=== PATIENT | male | born 1975 | race African-American/Black ===

== ENCOUNTER 2024-07-15 02:34 | Emergency (ER) | payer OTHER, SELFPAY ==
[2024-07-15] VITALS (13 sets, daily range): BP systolic 141–150; BP diastolic 83–105; PULSE 71–90; RESP 12–30; TEMP 36.9; O2SAT 96–99
--- NOTE | ~2024-07-15 | CT_ITS ---
EXAMINATION: CTA chest PE protocol DATE: 07/15/2024 09:02 INDICATION: Chest pain. TECHNIQUE: Computed tomography angiography (CTA) of the chest was performed with 100 mL Omnipaque-350 intravenous contrast timed to evaluate the pulmonary arteries. Coronal maximum intensity projection 3D-reconstructions were created by the technologist. Automated exposure control and iterative reconst ruction technique were employed. The dose-length product was 351.54 mGy-cm. COMPARISON: None. FINDINGS: There is moderate emphysema. There is mild atelectasis in the right. There is a in the 11.3 x 11.8 cm mass involving the left lung upper lobe in the mediastinum. There is left hilar and medias tinal lymphadenopathy. There are airspace and groundglass opacities in left upper lobe adjacent to th e mass that may be pulmonary edema or pneumonia. There is marked elevation of left hemidiaphragm, lik rafael secondary to phrenic nerve involvement by the tumor. There is atelectasis in left lower lobe. A c alcified right lung nodule and calcified right hilar lymph nodes are consistent with old granulomatou s disease. No pleural effusion. There is left atrial enlargement of the heart. There is a small peric ardial effusion. There is no pulmonary embolus. There is a 2.3 cm mass in left adrenal gland. There i s a 14 mm cyst in left kidney. There is mild thoracic spondylosis. There is mild chronic anterior wed ging of T11-L1 vertebral bodies. There is a right internal jugular port with tip in right atrium. IMPRESSION: 1. 1.8 cm mass involving the left lung upper lobe in the mediastinum and left hilar and mediastinal l ymphadenopathy, consistent with primary bronchogenic carcinoma and nelda metastatic disease. 2. Airspace and groundglass opacities in left upper lobe adjacent to the mass, consistent with pulmon jenny edema versus pneumonia. 3. 2.3 cm mass in the left adrenal gland, which may be metastatic disease or an adenoma. 4. No pulmonary embolus. 5. Moderate emphysema. 6. Small pericardial effusion. Reviewed, dictated and finalized at location [facility] IMPRESSION: 1. 1.8 cm mass involving the left lung upper lobe in the mediastinum and left h ilar and mediastinal lymphadenopathy, consistent with primary bronchogenic carc inoma and nelda metastatic disease. 2. Airspace and groundglass opacities in left upper lobe adjacent to the mass, consistent with pulmonary edema versus pneumonia. 3. 2.3 cm mass in the left adrenal gland, which may be metastatic disease or an adenoma. 4. No pulmonary embolus. 5. Moderate emphysema. 6. Small pericardial effusion.
--- NOTE | 2024-07-15 02:47 | ECG_ITS ---
Test Date: 2024-07-15 02:47:19 Measurements Intervals [place] Rate: 72 P: 61 MN: 169 QRS: 35 QRSD: 90 T: 75 QT: 370 QTc: 406 Interpretive Statements SINUS RHYTHM VOLTAGE CRITERIA FOR LVH [MEETS CRITERIA IN ONE OF: R(aVL), S(V1), R(V5), R(V5/V6)+S(V1)] NONSPECIFIC T-WAVE ABNORMALITY No previous ECG available for comparison Electronically Signed On 07-15-2024 11:56:28 HAND MODEL by Daxa Bradshaw
[2024-07-15 06:18] LABS: Basophils Percent Auto 0.3 % (0.2-1.2); Eosinophils Absolute Auto 0.4 K/mm3 (0-0.3); Eosinophils Percent Auto 2.7 % (0-4.4); Hematocrit 32.8 % (42.0-52.0); Hemoglobin 10.4 g/dL (14.0-18.0); Immature Granulocyte Absolute 0.04 K/mm3 (0.00-0.031); Immature Granulocyte Percent A 0.3 % (0-0.5); Lymphocytes Absolute Auto 2.17 K/mm3 (0.9-3.2); Lymphocytes Percent Auto 15.7 % (18.3-44.2); Mean Corpuscular HGB Conc 31.7 g/dl (32-36); Mean Corpuscular Volume 88.2 fl (80-100); Mean Platelet Volume 9.2 fl (7.4-10.4); Monocytes Absolute Auto 1.3 K/mm3 (0.1-0.6); Monocytes Percent Auto 9.5 % (2.6-8.5); Neutrophils Absolute Auto 9.9 K/mm3 (1.3-6.7); Neutrophils Percent Auto 71.5 % (45.5-73.1); Platelet Count Result 530 k/mm3 (150-375); Red Blood Count 3.72 M/mm3 (4.6-6.20); Red Cell Distribution Width 13.6 % (11.5-14.5); White Blood Count 13.9 K/mm3 (4.5-10.0)
[2024-07-15 06:56] LABS: Influenza A QL RT-PCR Negative (Negative); Influenza B QL RT-PCR Negative (Negative); RSV RNA, RT-PCR Negative (Negative); SARS-CoV-2 RNA PCR Negative (Negative)
[2024-07-15 07:01] LABS: INR 1.1; Prothrombin Time 14.5 Seconds (11.1-14.7)
[2024-07-15 07:02] LABS: Partial Thromboplastin Time 31.8 Seconds (22.3-36.8)
[2024-07-15 07:07] LABS: D Dimer 1.73 ug/mL (<0.48)
[2024-07-15 08:00] LABS: Alanine Aminotransferase 17 U/L (6-50); Alkaline Phosphatase 83 U/L (38-126); Anion Gap 10 mmol/L (4-12); Aspartate Amino Transferase 24 U/L (17-59); Bilirubin,Total 0.5 mg/dL (0.2-1.3); Blood Urea Nitrogen 20 mg/dL (9-20); Calcium 9.7 mg/dL (8.4-10.2); Carbon Dioxide 26 mmol/L (22-30); Chloride 105 mmol/L (98-107); Estimated CRCL calculation 87 ml/min; Estimated Glomerular Filt Rate > 60; Glucose 111 mg/dL (65-110); Lipase 39 U/L (23-300); Magnesium 2.1 mg/dL (1.6-2.3); Sodium 141 mmol/L (137-145)
[2024-07-15 08:10] LABS: Troponin I < 0.012 ng/mL (0.000-0.034)
--- NOTE | 2024-07-15 08:27 | ECG_ITS ---
Test Date: 2024-07-15 08:39:22 Measurements Intervals [place] Rate: 81 P: 50 MA: 166 QRS: 34 QRSD: 88 T: 86 QT: 347 QTc: 403 Interpretive Statements SINUS RHYTHM LEFT VENTRICULAR HYPERTROPHY AND ST-T CHANGE [VOLTAGE CRITERIA PLUS ST/T ABNORMALITY] Compared to ECG 07/15/2024 02:47:19 ST (T wave) deviation now present T-wave abnormality no longer present Electronically Signed On 07-15-2024 11:57:40 [employer] by Daxa Bradshaw
[2024-07-15 09:14] LABS: Troponin I < 0.012 ng/mL (0.000-0.034)
--- NOTE | 2024-07-15 09:38 | ED_ITS ---
HPI - Chest Pain General Chief Complaint: Chest Pain Stated Complaint: chest pain Time Seen by Provider: 07/15/24 07:09 Source: patient Mode of arrival: EMS Limitations: no limitations History of Present Illness HPI narrative: 49-year-old with a history of stage IV lung cancer status post port placement yesterday at [facility] presents to the ER with the complaints of right-sided chest pain earlier this morning. A states by the time he got to the ER his pain has much improved. He denied any shortness of breath. No history of fever or chills. He states that his oncologist is at [facility]. complaint: chest pain Pertinent past history: other (Lung ca) Onset (ago): hour(s) (2) Timing of current episode: now resolved Prior episodes: No Onset: during rest Pain location: right chest Pain radiation: none Severity: moderate Relieving factors: nothing Exacerbating factors: nothing Context: recent surgery Treatment prior to arrival: none Risk Factors Coronary artery disease risk factors: none Related Data Allergies Allergy/AdvReac Type Severity Reaction Status Date / Time No Known Allergies Allergy Verified 07/15/24 02:44 Review of Systems 2 Review of Systems: All systems reviewed & are unremarkable except as noted in HPI and below Constitutional: Constitutional: Reports no additional constitutional complaints Eyes: Eyes: Reports no additional eye complaints ENT: Reports system reviewed and no additional complaints, except as documented Cardiovascular: Cardiovascular: Reports as per HPI Respiratory: Respiratory: Reports no additional respiratory complaints Gastrointestinal: Gastrointestinal: Reports no additional gastrointestinal complaints Musculoskeletal: Musculoskeletal: Reports no additional musculoskeletal complaints Neurologic: Reports system reviewed and no additional complaints, except as documented Psychiatric: Psychiatric: Reports no additional psychiatric complaints Exam 2 Narrative: GENERAL: Well-appearing, well-nourished, and in no acute distress. HEAD: Normocephalic, atraumatic. EYES: PERRLA and EOMI. ENT: Nares clear, no rhinorrhea or epistaxis. Mucous membranes moist. NECK: Supple. CHEST: Clear to auscultation. No respiratory distress. Port-A-Cath in the right upper chest with Steri-Strips no bleeding skin appears to be normal HEART: Regular rate and rhythm. No murmur heard. Normal peripheral pulses. ABDOMEN: Soft, nontender, nondistended, normal active bowel sounds. EXTREMITIES: Normal range of motion. No edema. SKIN: Warm, dry, no rash. NEURO: No focal deficits. Alert and oriented x3. PSYCH: Normal mood and affect. Course Course Emergency Course: Notified patient about his lab work, CT findings. Most likely musculoskeletal in origin. No evidence of PE on CT scan. Recommended him to follow with his oncologist. Vital Signs Vital signs: Vital Signs Temperature 36.9 C 07/15/24 02:38 Pulse Rate 72 07/15/24 02:38 Respiratory Rate 20 07/15/24 02:38 Blood Pressure 141/83 H 07/15/24 02:38 Pulse Oximetry 97 07/15/24 02:38 Oxygen Delivery Room Air 07/15/24 02:38 Temperature 36.9 C 07/15/24 02:38 Pulse Rate 84 07/15/24 08:26 Respiratory Rate 19 07/15/24 08:26 Blood Pressure 146/92 H 07/15/24 08:26 Pulse Oximetry 99 07/15/24 08:26 Oxygen Delivery Room Air 07/15/24 05:39 MDM - Chest Pain Differential Diagnosis Differential diagnosis: Likely fracture of rib, pneumothorax, unstable angina pectoris and atypical chest pain Medical Records Data Attestation: I reviewed the patient's medical records. Lab Data Attestation: I reviewed the patient's lab results. 07/15/24 05:52 07/15/24 05:52 Labs: Lab Results 07/15/24 07/15/24 Range/Units 05:52 08:45 WBC 13.9 H (4.5-10.0) K/mm3 RBC 3.72 L (4.6-6.20) M/mm3 Hgb 10.4 L (14.0-18.0) g/dL Hct 32.8 L (42.0-52.0) % MCV 88.2 (80-100) fl MCH 28.0 (26-34) pg MCHC 31.7 L (32-36) g/dl RDW 13.6 (11.5-14.5) % Plt Count 530 H (150-375) k/mm3 MPV 9.2 (7.4-10.4) fl Immature Gran % (Auto) 0.3 (0-0.5) % Neut % (Auto) 71.5 (45.5-73.1) % Lymph % (Auto) 15.7 L (18.3-44.2) % [place] % (Auto) 9.5 H (2.6-8.5) % Eos % (Auto) 2.7 (0-4.4) % Baso % (Auto) 0.3 (0.2-1.2) % Lymph # (Auto) 2.17 (0.9-3.2) K/mm3 [place] # (Auto) 1.3 H (0.1-0.6) K/mm3 Eos # (Auto) 0.4 H (0-0.3) K/mm3 Baso # (Auto) 0.0 (0.0-0.1) K/mm3 Abs Immat Gran (auto) 0.04 H (0.00-0.031) K/mm3 Absolute Neuts (auto) 9.9 H (1.3-6.7) K/mm3 Absolute Nucleated RBC 0.000 (0.0-0.012) K/mm3 Nucleated RBC % 0.0 (0.0-0.2) % PT 14.5 (11.1-14.7) Seconds INR 1.1 APTT 31.8 (22.3-36.8) Seconds D-Dimer 1.73 H (<0.48) ug/mL Sodium 141 (137-145) mmol/L Potassium 4.0 (3.4-5.0) mmol/L Chloride 105 (98-107) mmol/L Carbon Dioxide 26 (22-30) mmol/L Anion Gap 10 (4-12) mmol/L BUN 20 (9-20) mg/dL Creatinine 1.00 (0.7-1.3) mg/dL Estim Creat Clear Calc 87 ml/min Estimated GFR > 60 (59 - ) Glucose 111 H (65-110) mg/dL Calcium 9.7 (8.4-10.2) mg/dL Magnesium 2.1 (1.6-2.3) mg/dL Total Bilirubin 0.5 (0.2-1.3) mg/dL AST 24 (17-59) U/L ALT 17 (6-50) U/L Alkaline Phosphatase 83 (38-126) U/L Troponin I < 0.012 < 0.012 (0.000-0.034) ng/mL Total Protein 8.0 (6.3-8.2) g/dL Albumin 4.0 (3.5-5.1) g/dL Lipase 39 (23-300) U/L Influenza A (RT-PCR) Negative (Negative) Influenza B (RT-PCR) Negative (Negative) RSV (RT-PCR) Negative (Negative) SARS-CoV-2 RNA (RT-PCR) Negative (Negative) ABG Data Attestation: I personally reviewed and interpreted this ABG as follows: Imaging Data Attestation: I personally reviewed and interpreted this imaging study as follows: ECG Data EKG #1: ECG completion date: 07/15/24 ECG completion time: 08:39 EKG Interpretation: normal rate (81), no ectopy, no ST changes, normal QRS, NL axis, other (LVH by voltage criteria) and no acute changes Discharge Plan Discharge Clinical Impression: Chest pain Qualifiers: Chest pain type: unspecified Qualified Code(s): R07.9 - Chest pain, unspecified Patient Disposition: Home, Self-Care Condition: Stable Instructions: Chest Pain (ED) Additional Instructions: Continue home medication take Tylenol ibuprofen for pain as needed, follow with the oncologist he Patient Language: Greek Follow-up/Referrals: UNKNOWN,DOCTOR [Primary Care Provider] - Radames Jasso MD [Physician] - Time of Disposition: 09:46
== END 2024-07-15 10:12 | disposition home or self-care (01) ==
PROVIDERS: Emergency Medicine; Emergency Provider Family Medicine
DX: R07.9 Chest pain, unspecified (principal); Z20.822 Contact with and (suspected) exposure to COVID-19; C34.90 Malignant neoplasm of unspecified part of unspecified bronchus or lung; I51.7 Cardiomegaly; R94.31 Abnormal electrocardiogram [ECG] [EKG]
CPT/HCPCS: 36415; 71275; 80053; 83690; 83735; 84484; 85025; 85380; 85610; 85730; 87637; 93005; 99284; Q9967